=== PATIENT | female | born 1975 | race Hispanic/Latino ===

== ENCOUNTER 2018-01-14 14:10 | Outpatient (CLI) | payer BC | END 2018-01-14 14:11 | disposition home or self-care (01) | LOC: BICMAMMO 14:10 | PROVIDERS: ATTEND Obstetrics & Gynecology Reproductive Endocrinology | DX: Z12.31 Encounter for screening mammogram for malignant neoplasm of breast (principal) | CPT/HCPCS: 77063; 77067 ==

== ENCOUNTER 2018-09-09 14:53 | Outpatient (CLI) | payer BC ==
--- NOTE | 2018-09-09 17:16 | ULT ---
RIGHT UPPER QUADRANT ULTRASOUND: 09/09/18 HISTORY: 43-year-old female with history of elevated liver enzymes. The liver demonstrates some increased diffuse echogenicity with some lower echogenic changes adjacent to the gallbladder, evidence for some fatty sparing. Nonshadowing, nonmobile echogenic focus within the gallbladder, evidence for probable polyp. Common bile duct 0.3 cm. Visualized pancreas and right kidney are unremarkable. No right upper quadrant abnormal fluid collection. IMPRESSION: Evidence for some fatty changes in the liver with some fatty sparring adjacent to the gallbladder. No nmobile, nonshadowing opacity within the gallbladder evidence for a gallbladder wall polyp. No ductal dilatation. POS: MELLY
== END 2018-09-09 14:54 | disposition home or self-care (01) ==
LOC: BICULT 14:53
PROVIDERS: ATTEND Family Medicine
DX: R74.8 Abnormal levels of other serum enzymes (principal); K82.4 Cholesterolosis of gallbladder
CPT/HCPCS: 76705

== ENCOUNTER 2019-06-11 11:05 | Outpatient (CLI) | payer BC ==
--- NOTE | 2019-06-11 11:32 | MMO ---
Bilateral MAMMO Bilat Screen [facility]. CLINICAL HISTORY: Patient is 43 years old and is seen for screening. The patient has no family history of breast cancer. The patient has no personal history of cancer. VIEWS: The views performed were: bilateral craniocaudal with tomosynthesis and bilateral mediolateral oblique with tomosynthesis. FILMS COMPARED: The present examination has been compared to prior imaging studies performed at [facility] on 09/16/2011, 12/02/2016 and 01/14/2018. MAMMOGRAM FINDINGS: The breasts are heterogeneously dense, which could obscure a lesion on mammography. There are stable benign appearing calcifications seen in both breasts. There are no suspicious masses, suspicious calcifications, or new areas of architectural distortion. IMPRESSION: THERE IS NO MAMMOGRAPHIC EVIDENCE OF MALIGNANCY. A ROUTINE FOLLOW-UP MAMMOGRAM IN 1 YEAR IS RECOMMENDED. THE RESULTS OF THIS EXAM WERE SENT TO THE PATIENT. ACR BI-RADS Category 2 - Benign finding MAMMOGRAPHY NOTE: 1. A negative mammogram report should not delay a biopsy if a dominant of clinically suspicious mass is present. 2. Approximately 10% to 15% of breast cancers are not detected by mammography. 3. Adenosis and dense breasts may obscure an underlying neoplasm. Reported by: DOMINGA HANEY MD Electonically Signed: [id number]
== END 2019-06-11 11:06 | disposition home or self-care (01) ==
LOC: BICMAMMO 11:05
PROVIDERS: ATTEND Family Medicine
DX: Z12.31 Encounter for screening mammogram for malignant neoplasm of breast (principal)
CPT/HCPCS: 77063; 77067

== ENCOUNTER 2022-08-28 06:56 | Outpatient (CLI) | payer BC | END 2022-08-28 06:57 | disposition home or self-care (01) | LOC: BICULT 06:56 | PROVIDERS: ATTEND Physician Assistant Medical | DX: K64.9 Unspecified hemorrhoids (principal); K62.5 Hemorrhage of anus and rectum; R79.89 Other specified abnormal findings of blood chemistry; K80.20 Calculus of gallbladder without cholecystitis without obstruction; K76.0 Fatty (change of) liver, not elsewhere classified | CPT/HCPCS: 76705 ==

== ENCOUNTER 2024-08-23 14:04 | Outpatient (CLI) | payer BC ==
[2024-08-23 15:58] LABS: BHCG - Serum Negative (NEGATIVE); Pregs Control Background? CLEAR/WHITE (CLR/WHITE); Pregs Control Bar Appear? YES (CONTROL BAR)
== END 2024-08-23 14:05 | disposition home or self-care (01) ==
LOC: LABBT 14:04
PROVIDERS: ATTEND Surgery
DX: Z01.812 Encounter for preprocedural laboratory examination (principal); Z68.37 Body mass index [BMI] 37.0-37.9, adult
CPT/HCPCS: 84703

== ENCOUNTER 2024-08-30 06:07 | Observation (INO) | payer BC ==
[2024-08-23 14:56] VITALS: BMI 34.3
[2024-08-30] MEDS ORDERED: Famotidine/PF 20 mg/2ml Vial ONE (06:30)
[2024-08-30] MEDS ORDERED: Glucagon 1 MG/ML KIT IM PRN (07:06)
[2024-08-30] MEDS ORDERED: hydrALAZINE 20 MG/ML VIAL SLOW IVP PRN (07:06)
[2024-08-30] MEDS ORDERED: Ipratropium/Albuterol 3 ML NEB NEB PRN (07:06)
[2024-08-30] MEDS ORDERED: Dextrose 5% in Water 1,000 ML IV PRN (07:06)
[2024-08-30] MEDS ORDERED: Dextrose 50% Abboject 50 ML SYRINGE SLOW IVP PRN (07:06)
[2024-08-30] MEDS ORDERED: diphenhydrAMINE 50 MG/ML VIAL IVP PRN (07:06)
[2024-08-30] MEDS ORDERED: Enoxaparin 40 MG (0.4 mL) SYRINGE ONE (07:10)
[2024-08-30] MEDS ORDERED: Scopolamine 1 mg/72 hour Patch ONE (07:10)
[2024-08-30] MEDS ORDERED: Bupivacaine 0.25% HCL 30 ML VIAL ONE (07:58)
[2024-08-30] MEDS ORDERED: EPINEPHrine 1 MG/ML VIAL ONE (07:58)
[2024-08-30] MEDS ORDERED: Lidocaine 2% PF 5 ML VIAL ONE (08:21)
[2024-08-30] MEDS ORDERED: fentaNYL PF 100 MCG/2 ML SYRINGE ONE (08:21)
[2024-08-30] MEDS ORDERED: PROPOFOL 20 ML ONE (08:21)
[2024-08-30] MEDS ORDERED: Rocuronium Bromide 10 MG/ML (10ML VIAL) ONE (08:21)
[2024-08-30] MEDS ORDERED: cefOXitin 2 GM VIAL ONE (08:23)
[2024-08-30] MEDS ORDERED: Ketorolac Tromethamine 30 MG (1 mL) VIAL ONE (08:28)
[2024-08-30] MEDS ORDERED: Ondansetron PF 4 MG/2 ML Vial ONE (08:28)
[2024-08-30] MEDS ORDERED: SUGAMMADEX SODIUM 200 MG/2 ML VIAL ONE (08:28)
[2024-08-30] MEDS ORDERED: Metoclopramide HCl 10 MG (2 mL) VIAL ONE (08:28)
[2024-08-30] MEDS ORDERED: Dexamethasone 4 mg/ml Vial ONE (08:28)
[2024-08-30] MEDS ORDERED: fentaNYL 50 mcg/mL 1 mL Vial ONE (09:43)
[2024-08-30] MEDS ORDERED: Promethazine HCl 25 MG/ML VIAL IM PRN (09:46)
[2024-08-30] MEDS ORDERED: Ondansetron HCl/PF 4 MG/2 ML Vial IVP PRN (09:46)
[2024-08-30] MEDS ORDERED: Meperidine HCl/PF 25 MG/ML VIAL SLOW IVP PRN (09:46)
[2024-08-30] MEDS ORDERED: Fentanyl 250 MCG/5 ML VIAL ONE (10:03)
[2024-08-30] MEDS ORDERED: D5 1/2 NS w/20 mEq KCL 1,000 ML ONE (10:39)
[2024-08-30] MEDS ORDERED: HYDROmorphone 0.5 MG/0.5 ML SYRINGE ONE (11:51)
[2024-08-30] MEDS: Enoxaparin 40 MG (0.4 mL) SYRINGE SC SCH (12:53)
[2024-08-30] MEDS: D5 1/2 NS w/20 mEq KCL 1,000 ML IV SCH (12:53)
[2024-08-30] MEDS: Ketorolac Tromethamine 30 MG (1 mL) VIAL IVP SCH (12:54)
[2024-08-30] MEDS: Pantoprazole 40 MG VIAL IVP SCH (12:54)
[2024-08-30] MEDS: Acetaminophen 650 MG/20.3 ML UDCUP PO SCH (13:56)
[2024-08-30] MEDS: Ondansetron PF 4 MG/2 ML Vial IVP PRN (13:59)
[2024-08-30] MEDS: oxyCODONE 5 MG TAB PO PRN (14:04)
[2024-08-30] MEDS: Promethazine HCl 25 MG/ML VIAL IM PRN (21:23)
[2024-08-31 08:02] VITALS: BP 109/72; TEMP 98.9
== END 2024-08-31 10:10 | disposition home or self-care (01) ==
LOC: SDC 06:07 → SURG A 12:34 → EDSTATUS 16:00
PROVIDERS: ADMIT Surgery; ATTEND Surgery
PROC: 0DT64ZZ Resection of Stomach, Percutaneous Endoscopic Approach (ICD-10-PCS; principal; 2024-08-30)
DX: E66.01 Morbid (severe) obesity due to excess calories (principal); K21.9 Gastro-esophageal reflux disease without esophagitis; Z68.36 Body mass index [BMI] 36.0-36.9, adult; E78.1 Pure hyperglyceridemia
CPT/HCPCS: 88307; 88342; G0378; J0171; J0665; J0694; J1100; J1170; J1650; J1885; J2405; J2470; J2550; J2704; J2765; J3010; J3480; J3490